=== PATIENT | male | born 1990 | race Caucasian/White ===

== ENCOUNTER 2023-02-16 09:13 | Outpatient (CLI) | payer BC, SELFPAY ==
[2023-02-16 19:09] LABS: Hematocrit 47.1 % (42.0-52.0); Hemoglobin 15.8 g/dL (14.0-18.0); Mean Corpuscular HGB Conc 33.5 g/dl (32-36); Mean Corpuscular Hemoglobin 29.5 pg (26-34); Mean Platelet Volume 9.8 fl (7.4-10.4); Platelet Count Result 312 k/mm3 (150-375); Red Blood Count 5.35 M/mm3 (4.6-6.20); Red Cell Distribution Width 13.2 % (11.5-14.5); White Blood Count 7.2 K/mm3 (4.5-10.0)
[2023-02-16 19:15] LABS: Alanine Aminotransferase 41 U/L (6-50); Albumin Level 4.3 g/dL (3.5-5.1); Alkaline Phosphatase 43 U/L (38-126); Anion Gap 9 mmol/L (8-16); Aspartate Amino Transferase 51 U/L (17-59); Bilirubin,Total 0.7 mg/dL (0.2-1.3); Blood Urea Nitrogen 15 mg/dL (9-20); Calcium 9.1 mg/dL (8.4-10.2); Carbon Dioxide 28 mmol/L (22-30); Chloride 100 mmol/L (98-107); Cholesterol 171 mg/dL (0-200); Estimated Glomerular Filt Rate > 60; Glucose 77 mg/dL (65-110); HDL Direct 32 mg/dL; Potassium 4.7 mmol/L (3.4-5.0); Sodium 137 mmol/L (137-145); Triglycerides 78 mg/dL (<150)
[2023-02-16 19:26] LABS: LDL Cholesterol Direct 106 mg/dL
[2023-02-16 20:05] LABS: Free T4 Free Thyroxine 0.85 ng/mL (0.78-2.19)
== END 2023-02-16 09:14 | disposition home or self-care (01) ==
LOC: ANHGOSHLAB 09:16
PROVIDERS: PCP Family Medicine; Visit Provider Family Medicine
DX: E66.9 Obesity, unspecified (principal); E78.5 Hyperlipidemia, unspecified; I10 Essential (primary) hypertension; R06.81 Apnea, not elsewhere classified; R51.9 Headache, unspecified; R79.89 Other specified abnormal findings of blood chemistry
CPT/HCPCS: 36415; 80053; 80061; 84439; 84443; 85027

== ENCOUNTER 2023-03-30 09:16 | Outpatient (CLI) | payer BC, SELFPAY ==
--- NOTE | 2023-04-08 18:13 | WPDHOMESLEEP ---
Sleep Study - Home Unattended Date of Study: 03/30/23 Ordering Provider: Carleen Gutierrez DO Interpreting Provider: Karis Daniel MD Home Sleep Study Type: Watch PAT Height: 1.83 m Weight: 136.078 kg Body Mass Index: 40.6 Neck Circumference (inches): 17.5 [place]: 2 Reason for Sleep Study Poor quality sleep, does not awaken feeling refreshed Sleep History Panchito Dorantes is a 32-year-old man with poor quality sleep, does not feel refreshed no matter how much sleep he gets. he has hypertension, hypertrophic cardiomyopathy and depression with anxiety. There is a family history of sleep issues, his father has obstructive sleep apnea. He never awakens from sleep short of breath. He never at night with heartburn, belching or cough.??He rarely snores, never snores loudly enough that others complain. He rarely has trouble sleeping when he has a cold. He never wakes up gasping for breath during the night. He never has breathing problems at night. He occasionally sweats excessively at night. He never notices his heart pounding or beating irregularly during the night. He never falls asleep during the day. He never falls asleep involuntarily, never falls asleep while driving. He never experiences loss of muscle tone with strong emotion. He never feels paralyzed on waking or falling asleep. He occasionally experiences vivid dreams upon waking or falling asleep. He never feels afraid of going to sleep. He frequently has nightmares. He occasionally recalls his dreams. He never has thoughts racing through his mind. He never feels sad or depressed. He occasionally feels anxiety. He occasionally notices parts of his body jerk. He rarely kicks during the night. He never feels crawling or aching feelings in his legs. He never feels leg pain at night. He denies grinding his teeth at night, denies morning jaw pain. He never feels bothered by pain during the day, never awakened by pain during the night. He never wakes up feeling stiff in the morning, never wakes feeling sore or achy in the morning. He never awakens with pain in his neck, spine, or joints. 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 He reports a weight gain of 60 lb in the last 12 months. Normal bedtime is 8:00 p.m., usually falling asleep minutes. He typically gets about 8 hours of sleep most nights. He wakes up 4 times during the night. When he wakes, he moves around, tries to return to sleep. His wake up time is 4:30 a.m.. he does not take naps in the afternoon or evening. A short nap lasting 10 or 15 minutes may be refreshing. He is usually drowsy for 1 hour after waking. He feels better in the morning compared to other times a day. Habits:??Tobacco: Never Caffeine: 3 servings a day. Alcohol: none Recreational substances: none [facility] Past Medical History Medical History (Updated 04/10/23 @ 14:32 by Karis Daniel MD) Depression Headache Heart disease HTN (hypertension), benign Hypertrophic cardiomyopathy Family History Family History (Updated 04/10/23 @ 14:27 by Karis Daniel MD) Father Hypertension Heart disease Obstructive sleep apnea Mother Hypertension Heart disease Grandparent Heart disease Social History Social History Smoking status: Never smoker Second hand tobacco smoke exposure: No Alcohol intake: current Drinks per week: 14 Alcohol use details: 2/day Substance use: never Lack of Transportation: No Lack of Food: Never True Current Housing: I Have Housing Concerned About Future Housing: No Difficulty Paying Gas/Electric Bills: No Difficulty Paying for Meds: No Currently Unemployed: No Education: Associate Degree Difficulty w/ Childcare or Family Care: No Medications Home Medications Medication Instructions Recorded Confirmed Type fluoxetine 20 mg capsule (Prozac) 20 mg PO
[2023-04-10 14:32] VITALS: BMI 40.6
== END 2023-03-31 09:32 | disposition hospice, home (50) ==
LOC: ANHCSM 09:20
PROVIDERS: PCP Family Medicine; Visit Provider Family Medicine
DX: G47.9 Sleep disorder, unspecified (principal); G47.33 Obstructive sleep apnea (adult) (pediatric)
CPT/HCPCS: 95800

== ENCOUNTER 2024-01-09 08:23 | Outpatient (CLI) | payer BC, SELFPAY ==
[2024-01-09 12:27] LABS: Hematocrit 47.1 % (42.0-52.0); Hemoglobin 15.8 g/dL (14.0-18.0); Mean Corpuscular HGB Conc 33.5 g/dl (32-36); Mean Corpuscular Hemoglobin 29.3 pg (26-34); Mean Corpuscular Volume 87.4 fl (80-100); Mean Platelet Volume 9.4 fl (7.4-10.4); Platelet Count Result 318 k/mm3 (150-375); Red Blood Count 5.39 M/mm3 (4.6-6.20); Red Cell Distribution Width 12.8 % (11.5-14.5)
[2024-01-09 12:40] LABS: Alanine Aminotransferase 76 U/L (6-50); Albumin Level 4.3 g/dL (3.5-5.1); Alkaline Phosphatase 53 U/L (38-126); Anion Gap 9 mmol/L (4-12); Aspartate Amino Transferase 70 U/L (17-59); Bilirubin,Total 0.6 mg/dL (0.2-1.3); Blood Urea Nitrogen 15 mg/dL (9-20); Calcium 9.2 mg/dL (8.4-10.2); Carbon Dioxide 28 mmol/L (22-30); Chloride 104 mmol/L (98-107); Cholesterol 163 mg/dL (0-200); Estimated Glomerular Filt Rate > 60; Glucose 98 mg/dL (65-110); HDL Direct 42 mg/dL; Potassium 4.2 mmol/L (3.4-5.0); Sodium 141 mmol/L (137-145); Triglycerides 170 mg/dL (<150)
[2024-01-09 12:50] LABS: LDL Cholesterol Direct 98 mg/dL
[2024-01-12 09:33] LABS: Testosterone Free 147.4 pg/mL (35.0-155.0); Testosterone Total 512 ng/dL (250-1100)
== END 2024-01-09 08:24 | disposition home or self-care (01) ==
LOC: ANHGOSHLAB 08:25
PROVIDERS: PCP Family Medicine; Visit Provider Family Medicine
DX: E66.9 Obesity, unspecified (principal); E78.5 Hyperlipidemia, unspecified; I10 Essential (primary) hypertension; R79.89 Other specified abnormal findings of blood chemistry; R53.83 Other fatigue; R68.82 Decreased libido
CPT/HCPCS: 36415; 80053; 80061; 84402; 84403; 84443; 85027

== ENCOUNTER 2024-12-02 06:34 | Emergency (ER) | payer BC, SELFPAY ==
--- NOTE | ~2024-12-02 | XR_ITS ---
AP view of the pelvis and AP and lateral views of the left hip Clinical history: Pain Findings: No acute fracture or dislocation is seen. Osseous alignment is anatomic. Bilateral hip and SI joint spaces are preserved. Soft tissues are unremarkable. Impression: No significant abnormality is seen. Reviewed, dictated and finalized at [facility]. Impression: No significant abnormality is seen.
--- NOTE | ~2024-12-02 | CT_ITS ---
Noncontrast CT scan of the left hip CLINICAL HISTORY: Pain, occult fracture TECHNIQUE: Axial noncontrast imaging of the left hip was performed. Sagittal and coronal reformatted images were constructed. Dose reduction technique was used on this scan by utilizing automated exposu re control and iterative reconstruction technique. The dose-length product (DLP) was 972.58 mGy-cm. Findings: No acute fracture or dislocation seen. Joint spaces are preserved. SI joints intact. Visualized musculature about the left hip is unremarkable. No muscle atrophy evident. No soft tissue mass or fluid collection seen. No acute inflammatory process identified. IMPRESSION: No significant abnormality seen. No fracture or dislocation. Reviewed, dictated and finalized at location .
--- OUTSIDE RECORDS SUMMARY | 2024-12-02 06:36 | XMS_ITS | Clinical Summary ---
Author Organization [facility] Address [address] [place] [address] Care Team Providers Care Internal Controls Specialist Name Role Phone Santos Cerda MD Unavailable Unavailable Jorge Luis Caba PA-C Unavailable [phone] None, Provider Primary Care Provider UnavailGenaro Salter MD Unavailable [phone] Denisse Georges NP Unavailable [phone] Allergies No known active allergies Medications fluoxetine 20 MG capsule TAKE 1 CAPSULE BY MOUTH IN THE MORNING 08/03/2019 Active carBAMazepine 100 MG chewable tablet Chew 1 tablet (100 mg total) by mouth nightly as needed. 05/08/2021 Active lisinopril (PRINIVIL) 10 MG tablet Take 1 tablet (10 mg total) by mouth daily. 90 tablet 3 10/19/2022 Active ARIPiprazole (ABILIFY) 5 MG tablet Take 1 tablet (5 mg total) by mouth daily. 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 Abnormal EKG 03/29/2017 PVC (premature ventricular contraction) Immunizations Immunization Administration Dates Next Due PFIZER COVID-19 (ORIGINAL FO RMULATION, PURPLE CAP) mRNA, LNP-S, PF, 30 MCG/0.3 ML DOSE 03/18/2021,02/15/2021 Family History Medical History Relation Comments Heart Attack Maternal Grandmother Heart Attack Paternal Grandfather Relation Status Comments Father Alive Maternal Grandmother (Age 62) Mother Alive Paternal Grandfather (Age 68) Sister Alive Social History Tobacco Use Types Packs/Day Years Used Date Smoking Tobacco: Never Smokeless Tobacco: Former Chew Quit: 2011 Tobacco Cessation:Counseling Given: No Alcohol Use Standard Drinks/Week Comments Yes 10 (1 standard drink = 0.6 oz pu re alcohol) weekly Sex and Gender Information Value Date Recorded Sex Assigned at Not on file Legal Sex Male 9:54 AM CDT Gender Identity Not on file Sexual Orientation Not on file 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 on file Not on file Not on file Last Filed Vital Signs Vital Sign Reading Time Taken Comments Blood Pressure 126/86 07/06/2023 3:16 PM DEBIT AGENT Pulse 70 07/06/2023 3:16 PM DEBIT AGENT Temperature 36.2 C (97.2 F) 05/12/2021 7:15 AM CDT Respiratory Rate 16 07/06/2023 3:16 PM DEBIT AGENT Oxygen Saturation 97% 12/08/2022 9:11 AM CDT Inhaled Oxygen Concentration - - Weight 125.7 kg (277 lb 3.2 oz) 07/06/2023 3:16 PM DEBIT AGENT Height 182.9 cm (6') 07/06/2023 3:16 PM DEBIT AGENT Body Mass Index 37.6 07/06/2023 3:16 PM DEBIT AGENT Plan of Treatment Health Maintenance Due Date Last Done Comments Annual Physical 1992 Hepatitis C 2007 DTaP, Tdap and Td Vaccines (7 - Td or Tdap) 11/25/2019 11/24/2009, 11/19/2003, 01/05/1995, Additional history exists COVID-19 Vaccine ( season) 2024 04/16/2021, 03/18/2021, 02/15/2021 Hepatitis B Vaccines Completed 11/12/1999, 06/03/1999, 04/30/1999 HPV Vaccines Aged Out No longer eligi ble based on patient's age to complete this topic Meningococcal B Vaccine Aged Out No l onger eligible based on patient's age to complete this topic Meningococcal Vaccine Aged Out No natalee rainer eligible based on patient's age to complete this topic Pneumococcal Vaccine: Pediatrics (0 to 5 Years) and At-Risk Patients (6 to 49 Years) Aged Out No longer eligible based on patient's age to complete this topic RSV Immunizations Under 20 Months Aged Out No longer eligible based on patient's age to complete this topic Medical Devices Implanted Type Area Beef Pluck Trimmer Device Identifier Shelf Expiration Date Model / Serial / Lot Medtronic Linq Ii-05/12/2021 Implanted:Qty : 1 on 05/12/2021 by Santos Cerda MD Implantable Loop Recorder [employer] CARDIAC RHYTHM AND HEART FAILURE - DIV M 08/28/2022 [id number] / [id number] / Explanted Type Area Beef Pluck Trimmer Device Identifier Shelf Expiration Date Model / Serial / Lot Medtronic-Rev eal Linq-07/12/20 17 Implanted: by Santos Cerda MD (Quantity not on file) Implantable Loop Recorder [employer] LNQ11 / [id number] / Medtronic Reveal Linq Explanted:Qty : 1 on 05/12/2021 by Santos Cerda MD Implantable Loop Recorder [employer] CARDIAC RHYTHM AND HEART FAILURE - DIV M LNQ11 / / [id number] Insurance [facility] Care Teams Internal Controls Specialist Relationship Specialty Start Date End Date None, Provider, PCP - General UNKNOWN PHYSICIAN SPECIALTY 05/20/22 Santos Cerda MD EP Heel Seam Rubber CLINICAL CARDIAC ELECTROPHYSIOLOGY 06/08/17 Jorge Luis Caba PA-C [address] [place] [address] Electrophysiology 03/16/18 Genaro Hicks MD Consulting Physician INTERVENTIONAL CARDIOLOGY 12/15/22 Denisse Georges NP Jazmine Ponce [facility] [address] [place] [address] Nurse Practitioner Nurse Practitioner Family 07/06/23
--- OUTSIDE RECORDS SUMMARY | 2024-12-02 06:36 | XMS_ITS | Encounter Summary ---
Author Organization [facility] Address [address] [place] [id number] Care Team Providers Care Reinforced Concrete Inspector Name Role Phone Tuesday, Rajeev CANCINO Primary Care Provider [phone] Traik Durham MD Unavailable Unavailable Richard Adair MD Unavailable Unavailable Santos Cerda MD Unavailable Unavailable Jorge Luis CabaC Unavailable [phone] Roxane Johnston NP Primary Care Provider None, Provider Primary Care Provider Unavaila Genaro Mahmood MD Unavailable [phone] Denisse Georges NP Unavailable [phone] Encounter Details Date Type Department Care Team (Late st Contact Info) Description 03/29/2017 Abstract [facility] AT [address] [phone] Tarik Durham MD Social History Tobacco Use Types Packs/Day Years Used Date Smoking Tobacco: Never Smokeless Tobacco: Former Chew Alcohol Use Standard Drinks/Week Comments No 0 (1 standard drink = 0.6 oz pur e alcohol) Sex and Gender Information Value Date Recorded Sex Assigned at Not on file Legal Sex Male 9:54 AM CDT Gender Identity Not on file Sexual Orientation Not on file 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 on file Not on file Not on file documented as of this encounter Plan of Treatment Not on file documented as of this encounter Procedures Procedure Name Priority Date/Time Associated Diagnosis Comments COMPREHENSIVE METABOLIC PANEL Routine 03/28/2017 LIPID PANEL Routine 03/28/2017 THYROXINE, FREE (FT4) Routine 03/28/2017 THYROID STIM HORMONE TSH Routine 03/28/2017 documented in this encounter Results * LIPID PANEL (03/28/2017) CHOLESTEROL 171 HDL 39 TRIGLYCERIDES 55 LDL (CALCULATED) 121 03/28/2017 us Doc [facility] Final Result * THYROID STIM HORMONE, TSH (03/28/2017) Pathologist [facility] TSH 1.417 03/28/2017 us Doc [facility] Final Result * THYROXINE, FREE (FT4) (03/28/2017) Pathologist [facility] FREE T4 0.89 03/28/2017 us Doc [facility] Final Result * COMPREHENSIVE METABOLIC PANEL (03/28/2017) Pathologist [facility] SODIUM S/P/B 140 POTASSIUM S/P/B 4.3 CO2 25 CHLORIDE S/P/B 104 GLUCOSE 82 mg/dL CALCIUM S/P/B 9.7 BUN 16 CREATININE S/P/B 1.20 0.7 - 1.3 EGFR AFR. AMER. >60 EGFR NON-AFR. AMER. >60 <=90 ALKALINE PHOSPHATASE S/P/B 38 ALT 39 AST 26 BILIRUBIN TOTAL S/P/B 0.7 ALBUMIN S/P/B 4.5 3.5 - 5.0 TOTAL PROTEIN S/P/B 7.3 03/28/2017 us Doc [facility] Final Result documented in this encounter Visit Diagnoses Not on filedocumented in this encounter Care Teams Reinforced Concrete Inspector Relationship Specialty Start Date End Date Tuesday, BARAK Segundo [address] [place] [address] PCP - General 03/29/17 12/05/18 Roxane Johnston NP [address] [place] [address] PCP - General Nurse Practitioner Family 09/13/19 2 None, MD Valorie PCP - General UNKNOWN PHYSICIAN SPECIALTY 05/20/22 Tarik Durham MD [address] [place] [address] [place] Film Editor CARDIOVASCULAR DISEASE 03/29/1709/12 Richard Adair MD [address] [place] [phone] CARDIOVASCULAR DISEASE 06/02/17 12/14/22 Santos Cerda MD [address] [place] [address] EP Film Editor CLINICAL CARDIAC ELECTROPHYSIOLOGY 06/08/17 Jorge Luis Caba PA-C [address] [place] [phone] Electrophysiology 03/16/18 Genaro Hicks MD Consulting Physician INTERVENTIONAL CARDIOLOGY 12/15/22 Denisse Georges NP [address] [facility] [address] [place] [phone] Nurse Practitioner Nurse Practitioner Family 07/06/23 documented as of this encounter
--- OUTSIDE RECORDS SUMMARY | 2024-12-02 06:36 | XMS_ITS | Continuity of Care Document ---
Author Organization [facility], TD Address [address] [place] [phone] Phone Care Team Providers Care Director Institution Name Role Phone Tiara Pickens OD Unavailable [...] Diagnoses Date Provider Providers Copied on Encounter [facility], [facility], [address] [place] [address], [id number], [place] tel:[phone] [facility] No Information Celio Menjivar. [address] [place] [address], [id number], [place]. tel:[phone] [facility], [facility], [address] [place] [address], [id number], tel:[phone] [facility] blurriness, FBS improved (chief complaint)b lurriness, FBS improved (chief complaint) Foreign body in cornea, right eye, subsequent encounter Celio Menjivar. [address], [place], [id number], [place]. tel:[phone] [facility], [facility], [address] [place], [place], [id number], [place] tel:[phone] [facility] FB (chief complaint)F B (chief complaint) Foreign body in cornea, right eye, initial encounter Celio Menjivar. [address] [place], [place], [id number], [place]. tel:[phone] Family History Family Member Type Diagnosis Age At Onset Problem No family history of Diabete s mellitus Problem No family history of Glaucom a Problem No family history of Hyperte nsion Problem No family history of Catarac ts Problem No family history of Macular degeneration Payers Payer name Insurance type Covered green party ID Nawaf mcnair(s) Workers Compensation CI [id number] Social History Type Description Quantity Date Captured [...] No Information Instructions Date Instruction Additional Infor william Impression/Plan tomorrow slamp Related to Forei gn body in cornea, right eye, initial encounter Impression/Plan Related to Forei gn body in cornea, right eye, initial encounter Assessments Type Assessment Date No Information Patient Care Teams Name Effective Dates (start - stop) Status Members No Information
[2024-12-02 06:44] VITALS: BP 183/112; PULSE 93; RESP 16; TEMP 36.8; O2SAT 99
--- NOTE | 2024-12-02 06:50 | PC.NURSE ---
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
[2024-12-02] MEDS: HYDROcodone/acetaminophen (*CRX) 5-325 MG TABLET 1 TAB PO (07:14)
--- NOTE | 2024-12-02 07:22 | ED_ITS ---
HPI - Extremity Injury (Lower) General Chief Complaint: Extremity Injury, Lower Stated Complaint: left hip pain Time Seen by Provider: 12/02/24 07:22 Source: patient and family () Mode of arrival: ambulatory Limitations: no limitations History of Present Illness HPI Narrative: Patient presents with report of left hip pain. He noted that it started feeling sore Paulo morning but has continued to get worse to the point that he has recently had to stay in bed and this is unusual for him. Patient describes pain that overlies his left hip and slightly posterior aspect this joint. He notes that the pain occasionally radiates towards his mid back. He does a lot of standing and squatting/bending at his work. However, he denies any direct trauma. No fevers or chills. No previous injury or surgery in this joint. He notes that the pain is worse with with both prolonged sitting as well as prolonged standing. He has been nauseated and with decreased p.o. intake. The pain is worse with adduction of this joint and for this reason lying on his right side has been difficult because this leads to adduction of the left leg at the hip. Alternatively, lying directly on the left hip joint is also painful. He denies any paresthesias or rash. Last bowel movement was yesterday. No penile discharge. He has been trying ibuprofen, Aleve, ice, and heat. He also took 2 cyclobenzaprine. Related Data Home Medications Medication Instructions Recorded Confirmed Last Taken Type fluoxetine 20 mg capsule (Prozac) 20 mg PO DAILY 01/25/23 04/02/24 Unknown History lisinopril 10 mg tablet 10 mg PO DAILY 01/25/23 04/02/24 Unknown History metoprolol succinate 50 mg 50 mg PO DAILY 01/25/23 04/02/24 Unknown History tablet,extended release 24 hr Allergies Allergy/AdvReac Type Severity Reaction Status Date / Time No Known Allergies Allergy Verified 12/02/24 06:48 [facility] Past Medical History Medical History Hypertrophic cardiomyopathy HTN (hypertension), benign Depression Heart disease Headache Family History Family History Father Hypertension Heart disease Obstructive sleep apnea Mother Hypertension Heart disease Grandparent Heart disease Social History Social History Social History: Smoking status: Never smoker Second hand tobacco smoke exposure: No Alcohol intake: current Drinks per week: 14 Alcohol use details: 2/day Substance use: never Lack of Transportation: No Lack of Food: Never True Current Housing: I Have Housing Concerned About Future Housing: No Difficulty Paying Gas/Electric Bills: No Difficulty Paying for Meds: No Currently Unemployed: No Education: Associate Degree Difficulty w/ Childcare or Family Care: No Living arrangements: with family Additional living arrangements comments: Occupation/Education: 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 HEAD: Normocephalic, atraumatic. EYES: Non injected, non icteric ENT: Nares clear, no rhinorrhea or epistaxis. NECK: Supple. CHEST: Speaking in full sentences. No respiratory distress. HEART: Regular rate and rhythm. . ABDOMEN: Soft, nondistended. EXTREMITIES: Normal range of motion. No bilateral lower extremity edema. No obvious bony deformity. Mild TTP of left hip joint - laterally and posteriorly but without crepitus. Pain worse with left hip ADDuction across midline but able to perform this. SKIN: Warm, dry, no rash/ecchymosis/vesicular lesions over left buttock/hip joint or throughout left leg. NEURO: No focal deficits. Alert and oriented x3. Patient able to stand and bear weight. 5/5 strength throughout bilateral lower extremities. PSYCH: Normal mood and affect. Course Vital Signs Vital signs: Vital Signs Temperature 98.3 F 12/02/24 06:44 Pulse Rate 93 12/02/24 06:44 Respiratory Rate 16 12/02/24 06:44 Blood Pressure 183/112 H 12/02/24 06:44 Pulse Oximetry 99 12/02/24 06:44 Temperature 98 F 12/02/24 09:41 Pulse Rate 85 12/02/24 09:41 Respiratory Rate 18 12/02/24 09:41 Blood Pressure 154/88 H 12/02/24 09:41 Pulse Oximetry 98 12/02/24 09:41 MDM - Extremity Injury (Lower) MDM Narrative Medical decision making narrative: Patient presents with left hip pain without known trauma. In the emergency department he is afebrile vital signs notable for hypertension. Patient is reassessed at approximately 8:15 a.m.. His pain has gone from 7 of out of 10 in severity to 4/10 severity after analgesic medication; he remains concerned about pathology within the hip as he and partner state that it took a lot for him to present to the ED as he does not typically do so for issues. Will proceed with CT imaging as patient states he does not really see a primary care physician, limited follow up. Discussed protocol with traffic engineering technician who will obtain soft tissue protocol. Imaging negative for acute process. I discussed the role of multimodal pain regimen as well as the need to follow-up primary care physician especially if not improving as patient may require advanced imaging, alternative analgesics medication, physical therapy, etc. he and partner verified understanding and are in agreement amenable with the plan. Discharged home stable condition. Differential Diagnosis Differential diagnosis: Likely fracture of femur, fracture of hip and other (Fracture/occult fracture, labral tear, bursitis, hematoma/seroma; SCFE; avascular necrosis; shingles) Imaging Data Radiologist's impression: Impressions Hip/Pelvis X-Ray 12/02/24 07:29 Impression: No significant abnormality is seen. Hip CT 12/02/24 08:49 IMPRESSION: No significant abnormality seen. No fracture or dislocation. Discharge Plan Discharge Clinical Impression: Acute pain of left hip Patient Disposition: Home Condition: Stable Instructions: Antibiotic Form, Hip Pain (ED) Additional Instructions: As we discussed, your x-ray was negative for a fracture and the CT scan did not identify any obvious bony or soft tissue abnormalities. Acetaminophen/Tylenol (maximum 4000 mg per day) is safe to take with NSAIDs (ibuprofen/Motrin) for pain relief. You are also being prescribed a short course of a muscle relaxer as well as topical approach. It is important that you follow-up with your primary care physician as you may require additional imaging (e.g. MRI), physical therapy, alternative pain management strategies, etc. Return to the ER if you have increased pain in your back, you develop lower extremity we akness/numbness/paralysis, you have numbness or tingling in your private parts, or you are unable to control your ability to urinate/stool. Patient Language: Serbian Prescriptions: New ibuprofen 600 mg tablet 600 mg PO TID PRN (Reason: pain) Qty: 30 0RF acetaminophen 500 mg capsule 1,000 mg PO Q6H PRN (Reason: pain) Qty: 30 0RF lidocaine 4 % adhesive patch,medicated 1 patch topical DAILY PRN (Reason: pain) Qty: 5 0RF methocarbamol 750 mg tablet 1,500 mg PO HS Qty: 14 0RF No Action Wegovy 1 mg/0.5 mL pen injector 1 mg subcut Q7D Qty: 2 0RF metoprolol succinate 50 mg tablet extended release 24 hr 50 mg PO DAILY fluoxetine [Prozac] 20 mg capsule 20 mg PO DAILY lisinopril 10 mg tablet 10 mg PO DAILY naproxen 500 mg tablet See Rx Instructions .ROUTE .COMPLEX Qty: 180 1RF Dose Instruction: Take 1 tablet by mouth twice daily as needed for pain Rx Instructions: Take 1 tablet by mouth twice daily as needed for pain omeprazole 20 mg capsule,delayed release(DR/EC) 20 mg PO BID Qty: 180 0RF Follow-up/Referrals: Reena Gonzalez DO [Primary Care Provider] - Stand Alone Forms: Work/School Release IP Time of Disposition: 08:58
--- OUTSIDE RECORDS SUMMARY | 2024-12-02 07:32 | XMS_ITS | Encounter Summary ---
Author Organization [facility] Address [address] [place] [address] Care Team Providers Care Occupational Rehabilitation Aide Name Role Phone Tuesday, Rajeev CANCINO Primary Care Provider [phone] Tarik Durham MD Unavailable Unavailable Richard Adair MD Unavailable Unavailable Santos Cerda MD Unavailable Unavailable Jorge Luis CabaC Unavailable [phone] Roxane Johnston NP Primary Care Provider None, Provider Primary Care Provider Unavaila Genaro Mahmood MD Unavailable [phone] Denisse Georges NP Unavailable [phone] Encounter Details Date Type Department Care Team (Late st Contact Info) Description 03/29/2017 Abstract [facility] AT [address] [phone] Tarik Durham MD Social History Tobacco Use [...] 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 Not on file [...] * THYROID STIM HORMONE, TSH (03/28/2017) Pathologist [facility] TSH 1.417 03/28/2017 us Doc [facility] Final Result * THYROXINE, FREE (FT4) (03/28/2017) Pathologist [facility] FREE T4 0.89 03/28/2017 us Doc [facility] Final Result * COMPREHENSIVE METABOLIC PANEL (03/28/2017) Pathologist [facility] SODIUM S/P/B 140 POTASSIUM S/P/B 4.3 CO2 [...] on filedocumented in this encounter Care Teams Occupational Rehabilitation Aide Relationship Specialty Start Date End Date Tuesday, BARAK Segundo [address] [place] [address] PCP - General 03/29/17 12/05/18 Roxane Johnston NP [address] [place] [address] PCP - General Nurse Practitioner Family 09/13/19 2 None, MD Valorie PCP - General UNKNOWN PHYSICIAN SPECIALTY 05/20/22 Tarik Durham MD [address] [place] [address] [employer] CARDIOVASCULAR DISEASE 03/29/1709/12 Richard Adair MD [address] [place] [address] CARDIOVASCULAR DISEASE 06/02/17 12/14/22 Santos Cerda MD [address] [place] [address] EP [employer] CLINICAL CARDIAC ELECTROPHYSIOLOGY 06/08/17 Jorge Luis Caba PA-C [address] [place] [phone] Electrophysiology 03/16/18 Genaro Hicks MD Consulting Physician INTERVENTIONAL CARDIOLOGY 12/15/22 Denisse Georges NP [address] [facility] [address] [place] [phone] Nurse Practitioner Nurse Practitioner Family 07/06/23 documented as of this encounter
--- OUTSIDE RECORDS SUMMARY | 2024-12-02 07:32 | XMS_ITS | Continuity of Care Document ---
Author Organization [facility] Address [address] [place] [phone] Phone Care Team Providers Care Inspector Printed Circuit Boards Name Role Phone Tiara Pickens OD Unavailable [...] Diagnoses Date Provider Providers Copied on Encounter [facility], [facility], [address] [place] [address], [id number], [place] tel:[phone] [facility] No Information Celio Menjivar. [address] [place] [address], [id number], [place]. tel:[phone] [facility], [facility], [address] [place] [address], [id number], tel:[phone] [facility] blurriness, FBS improved (chief complaint)b lurriness, FBS improved (chief complaint) Foreign body in cornea, right eye, subsequent encounter Celio Menjivar. [address] [place], [place], [id number], [place]. tel:[phone] [facility], [facility], [address] [place], [place], [id number], [place] tel:[phone] [facility] FB (chief complaint)F B (chief complaint) Foreign body in cornea, right eye, initial encounter Celio Menjivar. [address] [place], [place], [id number], [place]. tel:[phone] Family History Family Member Type Diagnosis Age At Onset Problem No family history of Macular degeneration Problem No family history of Catarac ts Problem No family history of Hyperte nsion Problem No family history of Glaucom a Problem No family history of Diabete s mellitus Payers Payer name Insurance type Covered democrat ID Nawaf mcnair(s) Workers Compensation CI [id number] Social History Type Description Quantity Date Captured [...]
--- OUTSIDE RECORDS SUMMARY | 2024-12-02 07:32 | XMS_ITS | Clinical Summary ---
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 Not on file Not on file Last Filed Vital Signs Vital Sign Reading Time Taken Comments Blood Pressure 126/86 07/06/2023 3:16 PM CELLOPHANE PRESS OPERATOR Pulse 70 07/06/2023 3:16 PM CELLOPHANE PRESS OPERATOR Temperature 36.2 C (97.2 F) 05/12/2021 7:15 AM CDT Respiratory Rate 16 07/06/2023 3:16 PM CELLOPHANE PRESS OPERATOR Oxygen Saturation 97% 12/08/2022 9:11 AM CDT Inhaled Oxygen Concentration - - Weight 125.7 kg (277 lb 3.2 oz) 07/06/2023 3:16 PM CELLOPHANE PRESS OPERATOR Height 182.9 cm (6') 07/06/2023 3:16 PM CELLOPHANE PRESS OPERATOR Body Mass Index 37.6 07/06/2023 3:16 PM CELLOPHANE PRESS OPERATOR Plan of Treatment Health Maintenance Due Date [...] this topic Medical Devices Implanted Type Area Shopfitter Device Identifier Shelf Expiration Date Model / Serial / Lot Medtronic Linq Ii-05/12/2021 Implanted:Qty : 1 on 05/12/2021 by Santos Cerda MD Implantable Loop Recorder [employer] CARDIAC RHYTHM AND HEART FAILURE - DIV M 08/28/2022 LNQ22 / [id number] / Explanted Type Area Shopfitter Device Identifier Shelf Expiration Date Model / Serial / Lot Medtronic-Rev eal Linq-07/12/20 17 Implanted: by Santos Cerda MD (Quantity not on file) Implantable Loop Recorder [employer] LNQ11 / [id number] / Medtronic Reveal Linq Explanted:Qty : 1 on 05/12/2021 by Santos Cerda MD Implantable Loop Recorder [employer] CARDIAC RHYTHM AND HEART FAILURE - DIV M LNQ11 / / [id number] Insurance [facility] Care Teams County Administrator Relationship Specialty Start Date End Date None, Provider, PCP - General UNKNOWN PHYSICIAN SPECIALTY 05/20/22 Santos Cerda MD EP Autopsy Assistant CLINICAL CARDIAC ELECTROPHYSIOLOGY 06/08/17 Jorge Luis Caba PA-C [address] [place] [address] Electrophysiology 03/16/18 Genaro Hicks MD Consulting Physician INTERVENTIONAL CARDIOLOGY 12/15/22 Denisse Georges NP Jazmine Ponce [facility] [address] [place] [address] Nurse Practitioner Nurse Practitioner Family 07/06/23
[2024-12-02] MEDS: KETOROLAC 30 MG/ML VIAL (*BKC) 15 MG IM (09:14)
[2024-12-02 09:41] VITALS: BP 154/88; PULSE 85; RESP 18; TEMP 36.6; O2SAT 98
== END 2024-12-02 09:25 | disposition home or self-care (01) ==
PROVIDERS: Emergency Provider Student in an Organized Health Care Education/Training Program; PCP Family Medicine
DX: M25.552 Pain in left hip (principal); I42.2 Other hypertrophic cardiomyopathy; I10 Essential (primary) hypertension; F32.A Depression, unspecified; Z79.899 Other long term (current) drug therapy
CPT/HCPCS: 73502; 73700; 96372; 99284; A9270; J1885

== ENCOUNTER 2025-02-02 09:27 | Outpatient (CLI) | payer BC, SELFPAY ==
--- NOTE | ~2025-02-02 | MR_ITS ---
MRI of the lumbar spine Clinical History: Back pain Technique: Axial T2-weighted images, and sagittal T1-weighted, T2-weighted, and T2 fat-sat images wer e acquired. Findings: There are bilateral L5 pars interarticularis defects, with 5 mm anterolisthesis of L5 over S1. There are mild chronic wedging deformities of T12 and L1. Probable developing Schmorl's node at t he superior endplate of L1. At L1-L2, there is no disc bulge or herniation. There is mild facet hypertrophy. No spinal canal sten osis or neural foraminal narrowing. At L2-L3, there is minimal disc bulge with mild facet hypertrophy. No spinal canal stenosis or neural foraminal narrowing. At L3-L4, there is minimal disc bulge with moderate facet hypertrophy. No spinal canal stenosis or de finite neural foraminal narrowing. At L4-L5, there is minimal disc bulge with advanced facet arthropathy. No central canal stenosis or d efinite neural foraminal narrowing. At L5-S1, there is disc bulge/uncovering with moderate severe facet arthropathy. No central canal phillip nosis. There is severe bilateral neural foraminal compromise. Paravertebral soft tissues are unremarkable. Impression: Bilateral L5 pars interarticularis defects, with 5 mm anterolisthesis of L5 over S1. Minimal chronic wedging deformities of T12-L1. Advanced bilateral neural foraminal compromise at L5-S1. Reviewed, dictated and finalized at [facility]. Impression: Bilateral L5 pars interarticularis defects, with 5 mm anterolisthesis of L5 ove r S1. Minimal chronic wedging deformities of T12-L1. Advanced bilateral neural foraminal compromise at L5-S1.
--- OUTSIDE RECORDS SUMMARY | 2025-02-02 09:30 | XMS_ITS | Encounter Summary ---
Author Organization [facility] Address [address] [place] [address] Care Team Providers Care Public Health Sanitarian Technician Name Role Phone Tuesday, Rajeev CANCINO Primary Care Provider [phone] Tarik Durham MD Unavailable Unavailable Richard Adair MD Unavailable Unavailable Santos Cerda MD Unavailable Unavailable Jorge Luis CabaC Unavailable [phone] Roxane Johnston NP Primary Care Provider None, Provider Primary Care Provider Unavaila Genaro Mahmood MD Unavailable [phone] Denisse Georges NP Unavailable [phone] Encounter Details Date Type Department Care Team (Late st Contact Info) Description 03/29/2017 Abstract [facility] AT [address] [phone] Tarik Durham MD Social History Tobacco Use [...] 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 Not on file [...] * THYROID STIM HORMONE, TSH (03/28/2017) Pathologist [facility] TSH 1.417 03/28/2017 us Doc [facility] Final Result * THYROXINE, FREE (FT4) (03/28/2017) Pathologist [facility] FREE T4 0.89 03/28/2017 us Doc [facility] Final Result * COMPREHENSIVE METABOLIC PANEL (03/28/2017) Pathologist [facility] SODIUM S/P/B 140 POTASSIUM S/P/B 4.3 CO2 [...] on filedocumented in this encounter Care Teams Public Health Sanitarian Technician Relationship Specialty Start Date End Date Tuesday, BARAK Segundo [address] [place] [address] PCP - General 03/29/17 12/05/18 Roxane Johnston NP [address] [place] [address] PCP - General Nurse Practitioner Family 09/13/19 2 None, MD Valorie PCP - General UNKNOWN PHYSICIAN SPECIALTY 05/20/22 Tarik Durham MD [address] [place] [address] [address] [address] [employer]redded Filler Machine Wrapper Layer CARDIOVASCULAR DISEASE 03/29/1709/12 Richard Adair MD [address] [place] [address] CARDIOVASCULAR DISEASE 06/02/17 12/14/22 Santos Cerda MD [address] [place] [address] EP Shredded Filler Machine Wrapper Layer CLINICAL CARDIAC ELECTROPHYSIOLOGY 06/08/17 Jorge Luis Caba PA-C [address] [place] [phone] Electrophysiology 03/16/18 Genaro Hicks MD Consulting Physician INTERVENTIONAL CARDIOLOGY 12/15/22 Denisse Georges NP [address] [facility] [address] [place] [phone] Nurse Practitioner Nurse Practitioner Family 07/06/23 documented as of this encounter
--- OUTSIDE RECORDS SUMMARY | 2025-02-02 09:30 | XMS_ITS | Continuity of Care Document ---
Author Organization [facility], [facility] Address [address] [place] [phone] Phone Care Team Providers Care Manager Engagement Name Role Phone Tiara Pickens OD Unavailable [...] Diagnoses Date Provider Providers Copied on Encounter [facility], [facility], [address] [place] [address], [id number], [place] tel:[phone] [facility] No Information Celio Menjivar. [address] [place] [address], [id number], [place]. tel:[phone] [facility], [facility], [address] [place] [address], [id number], tel:[phone] [facility] blurriness, FBS improved (chief complaint) Foreign body in cornea, right eye, subsequent encounter Celio Menjivar. [address] [place], [place], [id number], [place]. tel:[phone] [facility], [facility], [address] [place], [place], [id number], [place] tel:[phone] [facility] FB (chief complaint) Foreign body in cornea, right eye, initial encounter Celio Menjivar. [address] [place], [place], [id number], [place]. tel:[phone] Family History Family Member Type Diagnosis Age At Onset Problem No family history of Diabete s mellitus Problem No family history of Glaucom a Problem No family history of Hyperte nsion Problem No family history of Catarac ts Problem No family history of Macular degeneration Payers Payer name Insurance type Covered republican ID [id number] villeladebbi(s) Workers Compensation CI [id number] Social History Type Description Quantity Date Captured [...]
--- OUTSIDE RECORDS SUMMARY | 2025-02-02 09:30 | XMS_ITS | Clinical Summary ---
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 on file Not on file Last Filed Vital Signs Vital Sign Reading Time Taken Comments Blood Pressure 126/86 07/06/2023 3:16 PM DO[facility] CHIR[facility]RA[facility] Pulse 70 07/06/2023 3:16 PM [facility]RA[facility] Temperature 36.2 C (97.2 F) 05/12/2021 7:15 AM CDT Respiratory Rate 16 07/06/2023 3:16 PM [facility]IR[facility]RA[facility] Oxygen Saturation 97% 12/08/2022 9:11 AM CDT Inhaled Oxygen Concentration - - Weight 125.7 kg (277 lb 3.2 oz) 07/06/2023 3:16 PM [facility] CHIROPRACT[facility] Height 182.9 cm (6') 07/06/2023 3:16 PM DO[facility] OF CHIROPRACT[facility] Body Mass Index 37.6 07/06/2023 3:16 PM [facility]CTOR OF CHIR[facility]RACT[facility] Plan of Treatment Health Maintenance Due Date [...] this topic Medical Devices Implanted Type Area Solderer Furnace Device Identifier Shelf Expiration Date Model / Serial / Lot Medtronic Linq Ii-05/12/2021 Implanted:Qty : 1 on 05/12/2021 by Santos Cerda MD Implantable Loop Recorder [employer] CARDIAC RHYTHM AND HEART FAILURE - DIV M 08/28/2022 LNQ22 / [id number] / Explanted Type Area Solderer Furnace Device Identifier Shelf Expiration Date Model / Serial / Lot Medtronic-Rev eal Linq-07/12/20 17 Implanted: by Santos Cerda MD (Quantity not on file) Implantable Loop Recorder [employer] LNQ11 / [id number] / Medtronic Reveal Linq Explanted:Qty : 1 on 05/12/2021 by Santos Cerda MD Implantable Loop Recorder [employer] CARDIAC RHYTHM AND HEART FAILURE - DIV M LNQ11 / / [id number] Insurance [facility] Care Teams Ur Coordinator Relationship Specialty Start Date End Date None, Provider, PCP - General UNKNOWN PHYSICIAN SPECIALTY 05/20/22 Santos Cerda MD EP Dye And Chemical Coordinator CLINICAL CARDIAC ELECTROPHYSIOLOGY 06/08/17 Jorge Luis Caba PA-C [address] [place] [address] Electrophysiology 03/16/18 Genaro Hicks MD Consulting Physician INTERVENTIONAL CARDIOLOGY 12/15/22 Denisse Georges NP Jazmine Ponce [facility] [address] [place] [address] Nurse Practitioner Nurse Practitioner Family 07/06/23
== END 2025-02-02 09:28 | disposition home or self-care (01) ==
PROVIDERS: PCP Family Medicine; Visit Provider Nurse Practitioner
DX: M54.50 Low back pain, unspecified (principal)
CPT/HCPCS: 72148

== ENCOUNTER 2025-03-12 07:53 | Outpatient (CLI) | payer BC, SELFPAY ==
--- OUTSIDE RECORDS SUMMARY | 2025-03-12 07:59 | XMS_ITS | Clinical Summary ---
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 on file Not on file Last Filed Vital Signs Vital Sign Reading Time Taken Comments Blood Pressure 126/86 07/06/2023 3:16 PM MORTGAGE CLOSER Pulse 70 07/06/2023 3:16 PM MORTGAGE CLOSER Temperature 36.2 C (97.2 F) 05/12/2021 7:15 AM CDT Respiratory Rate 16 07/06/2023 3:16 PM MORTGAGE CLOSER Oxygen Saturation 97% 12/08/2022 9:11 AM CDT Inhaled Oxygen Concentration - - Weight 125.7 kg (277 lb 3.2 oz) 07/06/2023 3:16 PM MORTGAGE CLOSER Height 182.9 cm (6') 07/06/2023 3:16 PM MORTGAGE CLOSER Body Mass Index 37.6 07/06/2023 3:16 PM MORTGAGE CLOSER Plan of Treatment Health Maintenance Due Date Last Done Comments Annual Physical 1992 Hepatitis C 2007 HPV Vaccines (1 - 3-dose SCDM series) 2016 DTaP, Tdap and Td Vaccines (7 - Td or Tdap) 11/25/2019 11/24/2009, 11/19/2003, 01/05/1995, Additional history exists COVID-19 Vaccine ( season) 2024 04/16/2021, 03/18/2021, 02/15/2021 Hepatitis B Vaccines Completed 11/12/1999, 06/03/1999, 04/30/1999 Meningococcal B Vaccine Aged Out No l [...] this topic Medical Devices Implanted Type Area Scutcher Tender Device Identifier Shelf Expiration Date Model / Serial / Lot Medtronic Linq Ii-05/12/2021 Implanted:Qty : 1 on 05/12/2021 by Santos Cerda MD Implantable Loop Recorder [employer] CARDIAC RHYTHM AND HEART FAILURE - DIV M 08/28/2022 LNQ22 / [id number] / Explanted Type Area Scutcher Tender Device Identifier Shelf Expiration Date Model / Serial / Lot Medtronic-Rev eal Linq-07/12/20 17 Implanted: by Santos Cerda MD (Quantity not on file) Implantable Loop Recorder [employer] LNQ11 / [id number] / Medtronic Reveal Linq Explanted:Qty : 1 on 05/12/2021 by Santos Cerda MD Implantable Loop Recorder [employer] CARDIAC RHYTHM AND HEART FAILURE - DIV M LNQ11 / / [id number] Insurance [facility] Care Teams Manager Front Office Relationship Specialty Start Date End Date None, Provider, PCP - General UNKNOWN PHYSICIAN SPECIALTY 05/20/22 Santos Cerda MD EP Emissions Testing And Repair Technician CLINICAL CARDIAC ELECTROPHYSIOLOGY 06/08/17 Jorge Luis [place] [address] Electrophysiology 03/16/18 Genaro Hicks MD Consulting Physician INTERVENTIONAL CARDIOLOGY 12/15/22 Denisse Georges NP [address] [facility] [address] [place] [address] Nurse Practitioner Nurse Practitioner Family 07/06/23
--- OUTSIDE RECORDS SUMMARY | 2025-03-12 07:59 | XMS_ITS | Encounter Summary ---
Author Organization [facility] Address [facility] [place] [address] Care Team Providers Care Insurance Consultant Name Role Phone Tuesday, Rajeev CANCINO Primary Care Provider [phone] Tarik Durham MD Unavailable Unavailable Richard Adair MD Unavailable Unavailable Santos Cerda MD Unavailable Unavailable Jorge Luis Caba-C Unavailable [phone] Roxane Johnston NP Primary Care Provider None, Provider MD Primary Care Provider Unavaila Genaro Mahmood MD Unavailable [phone] Denisse Georges NP Unavailable [phone] Encounter Details Date Type Department Care Team (Late st Contact Info) Description 03/29/2017 Abstract [facility] AT [address] [address] Tarik [facility] MD Social History Tobacco Use [...] 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 Not on file [...] Result * THYROID STIM HORMONE, TSH (03/28/2017) TSH 1.417 03/28/2017 us Doc [facility] Final Result * THYROXINE, FREE (FT4) (03/28/2017) FREE T4 0.89 03/28/2017 us Doc [facility] Final Result * COMPREHENSIVE METABOLIC PANEL (03/28/2017) SODIUM S/P/B 140 POTASSIUM S/P/B 4.3 CO2 [...] on filedocumented in this encounter Care Teams Insurance Consultant Relationship Specialty Start Date End Date Tuesday, BARAK Segundo [address] [place] [id number] PCP - General 03/29/17 12/05/18 Roxane Johnston NP [address] [place] [phone] PCP - General Nurse Practitioner Family 09/13/19 2 None, Valorie, PCP - General UNKNOWN PHYSICIAN SPECIALTY 05/20/22 Tarik [facility] MD [address] [place] [address] [place] Business Support Associate CARDIOVASCULAR DISEASE 03/29/1709/12 Richard Adair MD [address] [place] [address] CARDIOVASCULAR DISEASE 06/02/17 12/14/22 Santos Cerda MD [address] [place] [id number] EP Business Support Associate CLINICAL CARDIAC ELECTROPHYSIOLOGY 06/08/17 Jorge Luis Caba PA-C [address] [place] [phone] Electrophysiology 03/16/18 Genaro Hicks MD Consulting Physician INTERVENTIONAL CARDIOLOGY 12/15/22 Denisse Georges NP [address] [place] [address] [address] [place] [phone] Nurse Practitioner Nurse Practitioner Family 07/06/23 documented as of this encounter
[2025-03-12 14:34] LABS: Hematocrit 45.9 % (42.0-52.0); Hemoglobin 15.3 g/dL (14.0-18.0); Mean Corpuscular HGB Conc 33.3 g/dl (32-36); Mean Corpuscular Hemoglobin 29.4 pg (26-34); Mean Corpuscular Volume 88.1 fl (80-100); Platelet Count Result 290 k/mm3 (150-375); Red Blood Count 5.21 M/mm3 (4.6-6.20); White Blood Count 6.2 K/mm3 (4.5-10.0)
[2025-03-12 14:53] LABS: Alanine Aminotransferase 117 U/L (6-50); Albumin Level 4.7 g/dL (3.5-5.1); Alkaline Phosphatase 50 U/L (38-126); Anion Gap 11 mmol/L (4-12); Aspartate Amino Transferase 77 U/L (17-59); Bilirubin,Total 0.6 mg/dL (0.2-1.3); Blood Urea Nitrogen 13 mg/dL (9-20); Calcium 9.6 mg/dL (8.4-10.2); Carbon Dioxide 25 mmol/L (22-30); Chloride 101 mmol/L (98-107); Cholesterol 219 mg/dL (0-200); Estimated Glomerular Filt Rate > 60; Glucose 83 mg/dL (65-110); HDL Direct 50 mg/dL; Potassium 4.0 mmol/L (3.4-5.0); Sodium 137 mmol/L (137-145); Total Protein 7.9 g/dL (6.3-8.2); Triglycerides 88 mg/dL (<150)
[2025-03-12 15:08] LABS: Free T4 Free Thyroxine 0.95 ng/dL (0.78-2.19)
[2025-03-12 15:29] LABS: Thyroid Stimulating Hormone 1.960 uIU/mL (0.465-4.680)
== END 2025-03-12 07:54 | disposition home or self-care (01) ==
LOC: ANHGOSHLAB 07:54
PROVIDERS: PCP Family Medicine; Visit Provider Family Medicine
DX: R79.89 Other specified abnormal findings of blood chemistry (principal); I10 Essential (primary) hypertension; E78.5 Hyperlipidemia, unspecified; E66.9 Obesity, unspecified
CPT/HCPCS: 36415; 80053; 80061; 84439; 84443; 85027

== ENCOUNTER 2025-03-26 08:59 | Emergency (ER) | payer BC, SELFPAY ==
--- OUTSIDE RECORDS SUMMARY | 2020-12-02 04:37 | XMS_ITS | Continuity of Care Document ---
Author Organization [facility], TD Address [address] [place] [phone] Phone Care Team Providers Care Plant Culture Manager Name Role Phone Tiara Pickens OD Unavailable Unavailable Allergies, Adverse Reactions, Alerts Substance Reaction Status Criticality No Known Drug Allergies Unknown Active No I nformation Medications Medication Instructions Dosage Effective Dates (start - stop) Status Comments ofloxacin 0.3 % eye drops instill 1 drop by ophthalmic route 4 times every day into affected eye(s) 1.00 drop - Active fluoxetine 20 mg capsule take 1 capsule by oral route every day in the morning 20 MG - Active Latuda 40 mg tablet take 1 tablet by ora l route every day with food (at least 350 calories) 40 MG - Active Procedures Procedure Date EYE EXAM ESTABLISHED PAT REMOVE FOREIGN BODY CORNEAL, EMBEDDED Ma EYE EXAM NEW PATIENT Advance Directives Directive Yes / No Effective Date File Name No Information Encounters Encounter Description Practice Location Reason(s) For Visit Diagnoses Date Provider Providers Copied on Encounter [facility], [facility], [address] [place] [address], [id number], [place] tel:[phone] [facility] No Information Celio Menjivar. [address] [place] [address], [id number], [place]. tel:[phone] [facility], [facility], [address] [place] [address], [id number], tel:[phone] [facility] blurriness, FBS improved (chief complaint) Foreign body in cornea, right eye, subsequent encounter Celio Menjivar. [address], [place], [id number], [place]. tel:[phone] [facility], [facility], [address], [place], [id number], [place] tel:[phone] [facility] FB (chief complaint) Foreign body in cornea, right eye, initial encounter Celio Menjivar. [address], [place], [id number], [place]. tel:[phone] Family History Family Member Type Diagnosis Age At Onset Problem No family history of Diabete s mellitus Problem No family history of Glaucom a Problem No family history of Hyperte nsion Problem No family history of Catarac ts Problem No family history of Macular degeneration Payers Payer name Insurance type Covered constitution party ID Authormulugeta villeladebbi(s) Workers Compensation CI [id number] Social History Type Description Quantity Date Captured Comments Alcohol Use Details Unknown Caffeine Use Details Unknown Tobacco Use Status No Information Smoking Status No Information Sex Male Chief Complaint And Reason For Visit No Information Reason For Referral Reason For Referral No Information History Of Present Illness Encounter Date Complaint History Of Prese nt Illness blurriness, FBS improved The 30 Year old male presents for follow-up Foreign Body Removal OD. Pt reports blurriness, FBS improved in the right eye since last exam. It affects both near and far vision. Pt has no pain or discomfort currently OU. The patient denies COVID-19 symptoms - temperature normal. Pt is using Ofloxacin QID OD. FB The 30 Year old male presents for FB in the right eye. It started about 1 day(s) ago when pt was at work OD. Pt states this is workman's comp; pt was grinding on metel and safety glasses were used and a holbrook. Pt states the nurse at [facility] did remove the piece of metal OD. Pt states the nurse did put some dye in his eye and told pt he had a large abrasion OD. Pt states both near and far vision is blurry OD. Pt states OS VA is good and stable D&N. Pt states OD is swollen, tender, watering, and has redness OD. Pt reports no pain or discomfort OS. The patient denies COVID-19 symptoms - temperature normal. Pt was given Refresh by nurse at [facility] but he has not used any OU. No eye meds or OTC AT. Functional Status Date Functional Assessmen t No Information Instructions Date Instruction Additional Infor mation Impression/Plan tomorrow slamp Related to Forei gn body in cornea, right eye, initial encounter Impression/Plan Related to Forei gn body in cornea, right eye, initial encounter Assessments Type Assessment Date No Information Patient Care Teams Name Effective Dates (start - stop) Status Members No Information
--- OUTSIDE RECORDS SUMMARY | 2020-12-02 04:37 | XMS_ITS | Continuity of Care Document ---
Author Organization [facility], TD Address [address] [place] [phone] Phone Care Team Providers Care Industrial Mechanic Name Role Phone Tiara Pickens OD Unavailable Unavailable Allergies, Adverse Reactions, Alerts Substance Reaction Status Criticality No Known Drug Allergies Unknown Active No I nformation Medications Medication Instructions Dosage Effective Dates (start - stop) Status Comments ofloxacin 0.3 % eye drops instill 1 drop by ophthalmic route 4 times every day into affected eye(s) 1.00 drop - Active Latuda 40 mg tablet take 1 tablet by ora l route every day with food (at least 350 calories) 40 MG - Active fluoxetine 20 mg capsule take 1 capsule by oral route every day in the morning 20 MG - Active Procedures Procedure Date EYE EXAM ESTABLISHED PAT REMOVE FOREIGN BODY CORNEAL, EMBEDDED Ma EYE EXAM NEW PATIENT Advance Directives Directive Yes / No Effective Date File Name No Information Encounters Encounter Description Practice Location Reason(s) For Visit Diagnoses Date Provider Providers Copied on Encounter [facility], [facility], [address] [place] [address], [id number], [place] tel:[phone] [facility] No Information Celio Menjivar. [address] [place] [address], [id number], [place]. tel:[phone] [facility], [facility], [address] [place] [address], [id number], tel:[phone] [facility] blurriness, FBS improved (chief complaint) Foreign body in cornea, right eye, subsequent encounter Celio Menjivar. [address], [place], [id number], [place]. tel:[phone] [facility], [facility], [address], [place], [id number], [place] tel:[phone] [facility] FB (chief complaint) Foreign body in cornea, right eye, initial encounter Celio Menjivar. [address], [place], [id number], [place]. tel:[phone] Family History Family Member Type Diagnosis Age At Onset Problem No family history of Macular degeneration Problem No family history of Catarac ts Problem No family history of Hyperte nsion Problem No family history of Glaucom a Problem No family history of Diabete s mellitus Payers Payer name Insurance type Covered green party ID Authormulugeta villeladebbi(s) Workers Compensation CI [id number] Social History Type Description Quantity Date Captured [...]
--- NOTE | ~2025-03-26 | CT_ITS ---
Panchito Dorantes EXAMINATION: CT abd pelvis lumbar w con COMPARISON: None HISTORY: R sided abd pain, N/V, BRBPR, LBP TECHNIQUE: Axial images were obtained through the abdomen, pelvis and lumbar spine post administration of IV contrast. Oral contrast was also administered. Coronal reconstruction images were obtained from the axial views. CT scan performed using dose optimization techniques including the following automated exposure control; adjustment of mA and/or kV; use of iterative reconstruction technique. Automatic exposure control was used to reduce radiation dose. Permanent radiation dose record is archived to PACS. FINDINGS: CT abdomen: LUNG BASES: The lung bases are clear. The visualized portions of the heart and pericardium are unremarkable. LIVER: Right lobe liver Vascular lesion 1 x 1 cm possible hemangioma incompletely evaluated. Portal vein patent. No intrahepatic biliary duct dilatation. SPLEEN: Unremarkable. KIDNEYS: Right Kidney: Unremarkable. No calculi. No hydronephrosis. Left Kidney: Unremarkable. No calculi. No hydronephrosis ADRENAL GLANDS: Unremarkable. PANCREAS: Unremarkable. GALLBLADDER/BILIARY: Unremarkable. No biliary dilatation. STOMACH AND ESOPHAGUS: Visualized stomach and esophagus within normal limits. BOWEL/MESENTERY: No colitis or diverticulitis. Appendix normal. Mesentery normal. No dilated small bowel loops. ADENOPATHY/RETROPERITONEUM: No lymphadenopathy. AORTA/VASCULATURE: Normal caliber aorta. FREE FLUID OR FREE AIR: No free fluid.. CT pelvis: SOLID ORGANS/REPRODUCTIVE: Unremarkable. BLADDER: Within normal limits. CT lumbar spine on OSSEOUS STRUCTURES: No acute osseous abnormality.No suspicious lesions. There is grade 1 anterolisthesis of L5 on S1 with bilateral spondylolytic defects were no acute fracture in the visualized spine. Moderate loss of disc height T12-L1, L1-2 and L5-S1 with moderate to severe canal and foraminal stenosis, outpatient MRI is suggested OVERLYING SOFT TISSUES: Small fat-containing left inguinal hernia. IMPRESSION: 1. No acute posttraumatic process identified. Incidental findings above Reviewed, dictated and finalized at location A.
[2025-03-26 09:04] VITALS: BP 172/100; PULSE 86; RESP 16; TEMP 36.6; O2SAT 100
--- OUTSIDE RECORDS SUMMARY | 2025-03-26 09:40 | XMS_ITS | Clinical Summary ---
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 file Not on file Last Filed Vital Signs Vital Sign Reading Time Taken Comments Blood Pressure 126/86 07/06/2023 3:16 PM COKE [employer]NER Pulse 70 07/06/2023 3:16 PM COKE [employer]URNER Temperature 36.2 C (97.2 F) 05/12/2021 7:15 AM CDT Respiratory Rate 16 07/06/2023 3:16 PM COKE BURNER Oxygen Saturation 97% 12/08/2022 9:11 AM CDT Inhaled Oxygen Concentration - - Weight 125.7 kg (277 lb 3.2 oz) 07/06/2023 3:16 PM COKE BURNER Height 182.9 cm (6') 07/06/2023 3:16 PM COKE BURNER Body Mass Index 37.6 07/06/2023 3:16 PM COKE BURNER Plan of Treatment Health Maintenance Due Date Last Done Comments Annual Physical 1992 Hepatitis C 2007 HPV Vaccines (1 - 3-dose SCDM series) 2016 DTaP, Tdap and Td Vaccines (7 - Td or Tdap) 11/25/2019 11/24/2009, 11/19/2003, 01/05/1995, Additional history exists COVID-19 Vaccine (2024- season) 2025 04/16/2021, 03/18/2021, 02/15/2021 Hepatitis B Vaccines Completed [...] this topic Medical Devices Implanted Type Area Flanger Device Identifier Shelf Expiration Date Model / Serial / Lot Medtronic Linq Ii-05/12/2021 Implanted:Qty : 1 on 05/12/2021 by Santos Cerda MD Implantable Loop Recorder [employer] CARDIAC RHYTHM AND HEART FAILURE - DIV M 08/28/2022 LNQ22 / [id number] / Explanted Type Area Flanger Device Identifier Shelf Expiration Date Model / Serial / Lot Medtronic-Rev eal Linq-07/12/20 17 Implanted: by Santos Cerda MD (Quantity not on file) Implantable Loop Recorder [employer] LNQ11 / [id number] / Medtronic Reveal Linq Explanted:Qty : 1 on 05/12/2021 by Santos Cerda MD Implantable Loop Recorder [employer] CARDIAC RHYTHM AND HEART FAILURE - DIV M LNQ11 / / [id number] Insurance [facility] Care Teams Hander In Relationship Specialty Start Date End Date None, Provider, PCP - General UNKNOWN PHYSICIAN SPECIALTY 05/20/22 Santos Cerda MD EP Breaker Off CLINICAL CARDIAC ELECTROPHYSIOLOGY 06/08/17 Jorge Luis [place] [address] Electrophysiology 03/16/18 Genaro Hicks MD Consulting Physician INTERVENTIONAL CARDIOLOGY 12/15/22 Denisse Georges NP [address] [facility] [address] [place] [address] Nurse Practitioner Nurse Practitioner Family 07/06/23
--- OUTSIDE RECORDS SUMMARY | 2025-03-26 09:40 | XMS_ITS | Encounter Summary ---
Author Organization [facility] Address [facility] [place] [address] Care Team Providers Care Wastewater Treatment Operator Name Role Phone Tuesday, Rajeev CANCINO Primary Care Provider [phone] Tarik [facility] MD Unavailable Unavailable Richard Adair MD Unavailable Unavailable Santos Cerda MD Unavailable Unavailable Jorge Luis Caba-C Unavailable [phone] Roxane Johnston NP Primary Care Provider None, Provider MD Primary Care Provider Unavaila Genaro Mahmood MD Unavailable [phone] Denisse Georges NP Unavailable [phone] Encounter Details Date Type Department Care Team (Late st Contact Info) Description 03/29/2017 Abstract [facility] AT [address] [phone] Tarik [facility] MD Social History [...] 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 Not on file [...] on filedocumented in this encounter Care Teams Wastewater Treatment Operator Relationship Specialty Start Date End Date Tuesday, BARAK Segundo [address] [place] [address] PCP - General 03/29/17 12/05/18 Roxane Johnston NP [address] [place] [phone] PCP - General Nurse Practitioner Family 09/13/19 2 None, Valorie, PCP - General UNKNOWN PHYSICIAN SPECIALTY 05/20/22 Tarik [facility] MD [address] [place] [address] [place] Body Finisher CARDIOVASCULAR DISEASE 03/29/1709/12 Richard Adair MD [address] [place] [address] CARDIOVASCULAR DISEASE 06/02/17 12/14/22 Santos Cerda MD [address] [place] [address] EP Body Finisher CLINICAL CARDIAC ELECTROPHYSIOLOGY 06/08/17 Jorge Luis Caba PA-C [address] [place] [phone] Electrophysiology 03/16/18 Genaro Hicks MD Consulting Physician INTERVENTIONAL CARDIOLOGY 12/15/22 Denisse Georges NP [address] [place] [address] [address] [place] [phone] Nurse Practitioner Nurse Practitioner Family 07/06/23 documented as of this encounter
--- NOTE | 2025-03-26 09:49 | ED.BACK ---
HPI - Back Pain/Injury General Chief Complaint: Back Pain/Injury Stated Complaint: back pain Time Seen by Provider: 03/26/25 09:05 Source: patient Mode of arrival: ambulatory Limitations: no limitations History of Present Illness HPI Narrative: Patient is a 34 y/o male who presents to the ED with multiple complaints. Patient reports history of chronic lower back pain. Reports he was diagnosed with a pars fracture of L5 in November of this year. He also reports injury to L4 and abnormality of L3. He has been seen neurosurgery with [facility] for this, but was told he was not a candidate for surgery. Is scheduled to see pain management with [facility] next week. Has been taking 1 [place] per day, methocarbamol, and diclofenac without improvement. Has not had [place] since Tuesday and reports a dramatic increase in his pain since Tuesday. Denies any new fall or injury. Denies saddle anesthesia, bowel or bladder incontinence, weakness. Also reports having increased pain throughout his right-sided abdomen since this weekend, intermittent nausea, vomiting, fever last night, headache, 1 episode of bright red rectal bleeding. Denies pain with bowel movements. Denies diarrhea, melena. He is not on anticoagulation. Denies current hemorrhoids. Related Data Home Medications ?Medication ?Instructions ?Recorded ?Confirmed ?Last Taken ?Type fluoxetine 20 mg capsule (Prozac) 20 mg PO DAILY 01/25/23 03/11/25 Unknown History ibuprofen 200 mg tablet 200 mg PO Q6H PRN 12/18/24 03/11/25 Unknown History diclofenac sodium 75 mg mg PO 02/22/25 03/11/25 Unknown History tablet,delayed release Allergies Allergy/AdvReac Type Severity Reaction Status Date / Time No Known Allergies Allergy Verified 03/26/25 09:27 Review of Systems Review of Systems: All systems reviewed & are unremarkable except as noted in HPI. All systems reviewed & are unremarkable except as noted in HPI and below PMFSH Past Medical History Medical History Sacroiliitis Dorsalgia Lumbar spondylosis Lumbar radiculopathy Hypertrophic cardiomyopathy HTN (hypertension), benign Depression Heart disease Headache Family History Family History Father Hypertension Heart disease Obstructive sleep apnea Mother Hypertension Heart disease Grandparent Heart disease Social History Social History Social History: Smoking status: Never smoker Second hand tobacco smoke exposure: No Alcohol intake: current Drinks per week: 14 Alcohol use details: 2/day Substance use: never Do You Feel Safe in your Home?: Yes Lack of Transportation: No Lack of Food: Never True Current Housing: I Have Housing Concerned About Future Housing: No Difficulty Paying Gas/Electric Bills: No Difficulty Paying for Meds: No Currently Unemployed: No Education: Associate Degree Difficulty w/ Childcare or Family Care: No Living arrangements: with family Additional living arrangements comments: Occupation/Education: occupation 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 HEAD: Normocephalic, atraumatic. RESPIRATORY: Airway patent, respirations nonlabored. Clear to auscultation bilaterally, no rales, rhonchi, wheezing. CARDIOVASCULAR: Regular rate and rhythm without murmurs, rubs, or gallops. ABDOMINAL: Soft, minimal tenderness throughout right lower abdomen, nondistended. Normoactive BS. MUSCULOSKELETAL: Moves all extremities. No gross deformities. Mild diffuse tenderness throughout lumbosacral region, midline spine, right SI region. Sensation intact. SKIN: Warm, dry, normal color. NEURO: A&O X3. Speech clear. Cranial nerves II-XII grossly intact. Steady gait. No ataxic movements. PSYCHIATRIC: Appropriate mood and affect. Normal interaction. Course Vital Signs Vital signs: Vital Signs Temperature 97.9 F 03/26/25 09:04 Pulse Rate 86 03/26/25 09:04 Respiratory Rate 16 03/26/25 09:04 Blood Pressure 172/100 H 03/26/25 09:04 Pulse Oximetry 100 03/26/25 09:04 Oxygen Delivery Room Air 03/26/25 09:04 Temperature 97.9 F 03/26/25 09:04 Pulse Rate 67 03/26/25 11:15 Respiratory Rate 16 03/26/25 11:15 Blood Pressure 154/95 H 03/26/25 11:15 Pulse Oximetry 99 03/26/25 11:15 Oxygen Delivery Room Air 03/26/25 09:04 MDM - Back Pain/Injury MDM Narrative Medical decision making narrative: Patient presented to ED with multiple complaints, worsening chronic low back pain, abdominal pain, nausea, vomiting, 1 episode of rectal bleeding, headache. Patient mildly hypertensive upon arrival. He denies history of hypertension. Likely pain related. He is neuro vascularly intact upon my examination. No evidence of cord compression or cauda equina. No red flag symptoms. No otherwise evidence of hemodynamic instability. Laboratory studies without leukocytosis. H&H is stable, consistent with previous records. Coags within normal range. CMP unremarkable. UA is clear. Viral swabs negative. CT of the abdomen/pelvis with lumbar spine was obtained and without acute intra-abdominal findings. Does show evidence of significant degenerative changes throughout lumbosacral region. No acute fracture. Recommend outpatient MRI. Patient did have an MRI performed here in January. Discussed lab and imaging findings, overall relatively benign workup with patient. He is feeling improved after small dose of Dilaudid here. Unclear etiology to worsening pain, advised could have strained himself without distinct injury. I am not finding any worrisome symptoms here today. Patient does report that he has not taken his [place] since Tuesday and this does coincide with the timeline of his worsening pain. Feel patient is safe for discharge home with short course of pain medication to have close follow-up with his neurosurgery team and pain management team at [facility] next week. Regarding rectal bleeding, discussed possibility of internal hemorrhoid, again no concerning features on exam or workup today. Advised to continue to monitor, stool softeners as needed. Patient is in agreement with this plan. Feels comfortable going home. Given strict return precautions. Discharged in stable condition. Medical Records Attestation: I reviewed the patient's medical records. Lab Data Attestation: I reviewed the patient's lab results. 03/26/25 09:54 03/26/25 09:54 Labs: Lab Results 03/26/25 03/26/25 Range/Units 09:54 10:26 WBC 9.3 (4.5-10.0) K/mm3 RBC 5.29 (4.6-6.20) M/mm3 Hgb 15.3 (14.0-18.0) g/dL Hct 45.5 (42.0-52.0) % MCV 86.0 (80-100) fl MCH 28.9 (26-34) pg MCHC 33.6 (32-36) g/dl RDW 12.7 (11.5-14.5) % Plt Count 305 (150-375) k/mm3 MPV 9.0 (7.4-10.4) fl Immature Gran % (Auto) 0.6 H (0-0.5) % Neut % (Auto) 71.0 (45.5-73.1) % Lymph % (Auto) 17.1 L (18.3-44.2) % Mills % (Auto) 9.7 H (2.6-8.5) % Eos % (Auto) 0.6 (0-4.4) % Baso % (Auto) 1.0 (0.2-1.2) % Lymph # (Auto) 1.59 (0.9-3.2) K/mm3 Mills # (Auto) 0.9 H (0.1-0.6) K/mm3 Eos # (Auto) 0.1 (0-0.3) K/mm3 Baso # (Auto) 0.1 (0.0-0.1) K/mm3 Abs Immat Gran (auto) 0.06 H (0.00-0.031) K/mm3 Absolute Neuts (auto) 6.6 (1.3-6.7) K/mm3 Absolute Nucleated RBC 0.000 (0.0-0.012) K/mm3 Nucleated RBC % 0.0 (0.0-0.2) % PT 12.8 (11.1-14.7) Seconds INR 0.9 APTT 27.5 (22.3-36.8) Seconds Sodium 139 (137-145) mmol/L Potassium 4.3 (3.4-5.0) mmol/L Chloride 101 (98-107) mmol/L Carbon Dioxide 29 (22-30) mmol/L Anion Gap 9 (4-12) mmol/L BUN 13 (9-20) mg/dL Creatinine 1.04 (0.7-1.3) mg/dL Estim Creat Clear Calc Not Reportable Estimated GFR > 60 (59 - ) Glucose 101 (65-110) mg/dL Calcium 9.9 (8.4-10.2) mg/dL Total Bilirubin 0.5 (0.2-1.3) mg/dL AST 34 (17-59) U/L ALT 58 H (6-50) U/L Alkaline Phosphatase 58 (38-126) U/L Total Protein 8.2 (6.3-8.2) g/dL Albumin 4.7 (3.5-5.1) g/dL Urine Color Yellow (Yellow) Urine Appearance Clear (Clear) Urine pH 5.5 (5.0-9.0) Ur Specific Sheridan 1.007 (1.001-1.035) Urine Protein Negative (Negative) mg/dL Urine Glucose (UA) Negative (Negative) mg/dL Urine Ketones Negative (Negative) mg/dL Ur Blood (Man) Negative (Negative) Urine Nitrate Negative (Negative) Urine Bilirubin Negative (Negative) Urine Urobilinogen 0.2 (<2.0) mg/dL Leukocyte Esterase Rfl Negative (Negative) PETER/UL Influenza A (RT-PCR) Negative (Negative) Influenza B (RT-PCR) Negative (Negative) RSV (RT-PCR) Negative (Negative) SARS-CoV-2 RNA (RT-PCR) Negative (Negative) Imaging Data Attestation: I personally reviewed and interpreted this imaging study as follows: Radiologist's impression: ITS Impressions Miscellaneous CT Procedure 03/26/25 11:08 IMPRESSION: 1. No acute posttraumatic process identified. Incidental findings above Discharge Plan Discharge Clinical Impression: Lumbar spondylosis Chronic low back pain Qualifiers: Back pain laterality: right Sciatica presence: without sciatica Qualified Code(s): M54.50 - Low back pain, unspecified; G89.29 - Other chronic pain Patient Disposition: Home Condition: Stable Instructions: Antibiotic Form, Acute Low Back Pain (ED), Lumbar Radiculopathy (ED) Additional Instructions: Continue Tylenol and Ibuprofen/aleve as needed for pain. Oxycodone as needed for more severe pain. You may use ice/heat, lidocaine patches to area of pain. Zofran if needed for nausea. Take muscle relaxers as needed and prescribed. Recommend taking these at night as they may cause sedation. Do not drive, operate heavy machinery, drink alcohol while on muscle relaxers as this may cause further sedation. Follow-up with neurosurgery and pain management for further evaluation. Return to the ED if you experience worsening or severe pain, new injury, numbness in groin or legs, going to the bathroom without meaning to, unable to keep down food or drink, or any other symptoms of concern. Patient Language: Citizen Of [place] Prescriptions: New lidocaine 5 % adhesive patch,medicated 1 patch topical DAILY Qty: 15 0RF Rx Instructions: leave on most painful area for up to 12 hrs oxycodone 5 mg tablet 5 mg PO Q6H PRN (Reason: pain) Qty: 10 0RF ondansetron 4 mg tablet,disintegrating 4 mg PO Q8H PRN (Reason: nausea and vomiting) Qty: 15 0RF No Action ibuprofen 200 mg tablet 200 mg PO Q6H PRN Rx Instructions: 600 in am 800 at lunch and 800 HS hydrocodone-acetaminophen 5-325 mg tablet 1 tablet PO Q8H PRN (Reason: pain) Qty: 30 0RF methocarbamol 750 mg tablet 750 mg PO BID PRN (Reason: muscle spasm) Qty: 180 0RF fluoxetine [Prozac] 20 mg capsule 20 mg PO DAILY diclofenac sodium 75 mg tablet,delayed release (DR/EC) PO acetaminophen 500 mg capsule 1,000 mg PO Q6H PRN (Reason: pain) Qty: 30 0RF omeprazole 20 mg capsule,delayed release(DR/EC) 20 mg PO BID Qty: 180 0RF Follow-up/Referrals: Reena Gonzalez DO [Primary Care Provider, [facility]] Time of Disposition: 12:04
[2025-03-26] MEDS: HYDROmorphone HCL INJ (*CRX) 1 MG/ML SYR 0.5 MG IV PUSH (09:56)
[2025-03-26] MEDS: ONDANSETRON INJ 4 MG/2 ML VIAL IV PUSH (09:56)
[2025-03-26 10:02] LABS: Hematocrit 45.5 % (42.0-52.0); Hemoglobin 15.3 g/dL (14.0-18.0); Immature Granulocyte Percent A 0.6 % (0-0.5); Lymphocytes Absolute Auto 1.59 K/mm3 (0.9-3.2); Mean Corpuscular HGB Conc 33.6 g/dl (32-36); Mean Corpuscular Hemoglobin 28.9 pg (26-34); Mean Corpuscular Volume 86.0 fl (80-100); Nucleated Red Blood Cells Absolute Auto 0.000 K/mm3 (0.0-0.012); Nucleated Red Blood Cells Perc 0.0 % (0.0-0.2); Platelet Count Result 305 k/mm3 (150-375); Red Blood Count 5.29 M/mm3 (4.6-6.20); White Blood Count 9.3 K/mm3 (4.5-10.0)
[2025-03-26 10:04] LABS: Add Urine Microscopic? NO; Appearance Urine Clear (Clear); Glucose Urine UA Negative (Negative); Leukocyte Esterase Ur Negative LEU/UL (Negative); Nitrate Urine Negative (Negative); Specific Grav Ur 1.007 (1.001-1.035)
[2025-03-26 10:13] LABS: INR 0.9; Prothrombin Time 12.8 Seconds (11.1-14.7)
[2025-03-26 10:14] LABS: Partial Thromboplastin Time 27.5 Seconds (22.3-36.8)
[2025-03-26 10:26] LABS: Alanine Aminotransferase 58 U/L (6-50); Albumin Level 4.7 g/dL (3.5-5.1); Alkaline Phosphatase 58 U/L (38-126); Anion Gap 9 mmol/L (4-12); Aspartate Amino Transferase 34 U/L (17-59); Bilirubin,Total 0.5 mg/dL (0.2-1.3); Blood Urea Nitrogen 13 mg/dL (9-20); Calcium 9.9 mg/dL (8.4-10.2); Carbon Dioxide 29 mmol/L (22-30); Chloride 101 mmol/L (98-107); Estimated Glomerular Filt Rate > 60; Glucose 101 mg/dL (65-110); Potassium 4.3 mmol/L (3.4-5.0); Sodium 139 mmol/L (137-145); Total Protein 8.2 g/dL (6.3-8.2)
[2025-03-26 11:09] LABS: Influenza A QL RT-PCR Negative (Negative); Influenza B QL RT-PCR Negative (Negative); RSV RNA, RT-PCR Negative (Negative); SARS-CoV-2 RNA PCR Negative (Negative)
[2025-03-26 11:15] VITALS: BP 154/95; PULSE 67; RESP 16; O2SAT 99
== END 2025-03-26 12:17 | disposition home or self-care (01) ==
PROVIDERS: Emergency Provider Physician Assistant; PCP Family Medicine
DX: M47.816 Spondylosis without myelopathy or radiculopathy, lumbar region (principal); G89.29 Other chronic pain; I42.2 Other hypertrophic cardiomyopathy; I11.9 Hypertensive heart disease without heart failure; F32.A Depression, unspecified; Z79.899 Other long term (current) drug therapy
CPT/HCPCS: 36415; 72132; 74177; 80053; 81003; 85025; 85610; 85730; 87637; 96374; 96375; 99284; J1171; J2405; Q9967